=== PATIENT | male | born 1970 | race Hispanic/Latino ===

== ENCOUNTER 2021-04-19 20:35 | Inpatient (IN) | payer SELFPAY ==
[2021-04-19] MEDS ORDERED: Acetaminophen 325 MG TAB ONE (20:59)
[2021-04-19 21:10] LABS: #Lymphocytes 0.7 thou/uL (1.20-3.40); #Monocytes 0.6 thou/uL (0.11-0.59); #Neutrophils 3.6 thou/uL (1.40-6.50); %Basophils 0.6 % (0.0-1.0); %Eosinophils 0.3 % (0.0-10.0); %Lymphocytes 14.7 % (21.0-51.0); %Monocytes 12.7 % (0.0-10.0); %Neutrophils 71.8 % (42.0-75.0); Hemoglobin 12.3 g/dL (14.0-18.0); Mean Corpuscular HGB CONC 33.5 g/dL (32.0-36.0); Mean Corpuscular Hemoglobin 31.6 pg (27.0-31.0); Mean Corpuscular Volume 94.1 fL (78.0-98.0); Mean Platelet Volume 8.7 fL (7.4-10.4); Platelet Count 131 thou/uL (130-400); RBC Distribution Width 11.8 % (11.5-14.5)
[2021-04-19 21:28] LABS: ALT (SGPT) 113 U/L (8-55); AST (SGOT) 93 U/L (5-34); Albumin 3.8 g/dL (3.5-5.0); Alkaline Phosphatase 175 U/L (40-110); Anion Gap 27 mmol/L (10-20); BUN (Urea Nitrogen) 13 mg/dL (8.9-20.6); Bilirubin, Total 1.2 mg/dL (0.2-1.2); Calc. Creatinine Clearance 0 mL/min (70-130); Calcium 8.3 mg/dL (7.8-10.44); Chloride 100 mmol/L (98-107); Globulin 2.5 g/dL (2.4-3.5); Potassium 3.2 mmol/L (3.5-5.1); Protein, Total 6.3 g/dL (6.0-8.3); Sodium 133 mmol/L (136-145)
[2021-04-19 21:31] LABS: Carbon Dioxide 9 mmol/L (22-29); Glucose 761 mg/dL (70-105)
[2021-04-19] MEDS ORDERED: Potassium Chloride 20 MEQ TAB ONE (21:37)
[2021-04-19 21:39] LABS: SARS-CoV-2 NAA Rapid Test Not Detected (NotDetected)
[2021-04-19] MEDS ORDERED: Magnesium 2 GM/50 ML BAG (IN WATER) ONE (21:51)
[2021-04-19] MEDS ORDERED: NS 0.9% w/ 40 MEQ KCL 1,000 ML IV SCH (22:00)
[2021-04-19 22:01] LABS: Analyzer IN Cardio ER; Base Excess -14.1 mEq/L (-2.0 to +3.0); Calcium, Ionized (venous) 1.08 mmol/L (1.16-1.32); Chloride (VBG) 102 mmol/L (98-106); Hemoglobin (Hb) 12.8 g/dL (13.1-17.2); Potassium (VBG) 3.03 mmol/L (3.70-5.30); Sodium 134.9 mmol/L (133-146); pH (venous) 7.31 (7.32-7.43)
[2021-04-19] MEDS ORDERED: Insulin Regular 300 UNITS/3 ML VIAL ONE (22:18)
[2021-04-19] MEDS ORDERED: INSULIN REGULAR IN 0.9 % NACL 100 UNIT/100 ML BAG ONE (22:28)
[2021-04-19 22:32] LABS: Actual Bicarbonate (HCO3v) 10 mEq/L (22-28)
[2021-04-19 22:32] LABS: Troponin I 0.032 ng/mL (< 0.028)
[2021-04-19 23:04] LABS: Bilirubin Negative (Negative); Blood, Urine Negative (Negative); Clarity Clear (Clear); Glucose, Urine (Dipstick) Greater than 1000 mg/dL (Negative); Ketone, Urine 80 mg/dL (Negative); Leukocyte Negative Leu/uL (Negative); Nitrite Negative (Negative); Protein, Urine (Dipstick) Negative (Neg-Trace); Specific Gravity, Urine 1.032 (1.002-1.036); Urobilinogen Normal mg/dL (Less than 2)
[2021-04-19] MEDS ORDERED: HUMULIN R 100 UNITS in Sodium Chloride 0.9% 100 ML IVPB SCH (23:45)
[2021-04-19 23:47] VITALS: BMI 26.8
[2021-04-19] MEDS ORDERED: Acetaminophen 325 MG TAB PO PRN ×2 (23:50→23:57)
[2021-04-19] MEDS ORDERED: Dextrose 5 %-0.45 % NaCl 1,000 ML IV PRN (23:55)
[2021-04-19] MEDS ORDERED: Sodium Chloride 0.9% 1,000 ML IV PRN ×4 (23:55)
[2021-04-19] MEDS ORDERED: NS 0.9% w/ 20 MEQ KCL 1,000 ML IV PRN ×2 (23:55)
[2021-04-19] MEDS ORDERED: Electrolyte Replacement Protocol 1 EACH IVPB ONE (23:55)
[2021-04-19] MEDS ORDERED: hydrALAZINE 20 MG/ML VIAL SLOW IVP PRN (23:57)
[2021-04-19] MEDS ORDERED: Ondansetron PF 4 MG/2 ML Vial IVP PRN (23:57)
[2021-04-19] MEDS ORDERED: HYDROcodone/Acetaminophen 5/325 mg Tablet PO PRN (23:57)
[2021-04-19] MEDS ORDERED: Promethazine HCl 12.5 MG in Sodium Chloride 0.9% 50 ML IVPB PRN (23:57)
[2021-04-19] MEDS ORDERED: Labetalol HCl 100 MG/20 ML VIAL SLOW IVP PRN (23:57)
[2021-04-19] MEDS ORDERED: cloNIDine 0.1 MG TAB PO PRN (23:57)
[2021-04-20 00:54] LABS: Anion Gap 16 mmol/L (10-20); BUN (Urea Nitrogen) 10 mg/dL (8.9-20.6); Calc. Creatinine Clearance 90 mL/min (70-130); Carbon Dioxide 14 mmol/L (22-29); Chloride 111 mmol/L (98-107); Glucose 330 mg/dL (70-105); Potassium 3.3 mmol/L (3.5-5.1); Sodium 138 mmol/L (136-145)
[2021-04-20] MEDS ORDERED: Potassium Chloride 20 MEQ TAB PO SCH (02:00)
[2021-04-20] MEDS: D5 1/2 NS w/20 mEq KCL 1,000 ML IV PRN ×2 (02:18→05:37)
[2021-04-20 03:40] LABS: Anion Gap 14 mmol/L (10-20); BUN (Urea Nitrogen) 9 mg/dL (8.9-20.6); Calc. Creatinine Clearance 109 mL/min (70-130); Calcium 7.7 mg/dL (7.8-10.44); Carbon Dioxide 16 mmol/L (22-29); Chloride 113 mmol/L (98-107); Glucose 237 mg/dL (70-105); Potassium 3.3 mmol/L (3.5-5.1); Sodium 140 mmol/L (136-145)
[2021-04-20 03:45] LABS: ALT (SGPT) 89 U/L (8-55); AST (SGOT) 68 U/L (5-34); Albumin 3.1 g/dL (3.5-5.0); Alkaline Phosphatase 118 U/L (40-110); Bilirubin, Direct 0.5 mg/dL (0.1-0.3); Bilirubin, Total 0.8 mg/dL (0.2-1.2); Protein, Total 5.4 g/dL (6.0-8.3)
[2021-04-20 04:13] LABS: Anion Gap 14 mmol/L (10-20); BUN (Urea Nitrogen) 9 mg/dL (8.9-20.6); Calc. Creatinine Clearance 113 mL/min (70-130); Calcium 7.8 mg/dL (7.8-10.44); Carbon Dioxide 14 mmol/L (22-29); Chloride 114 mmol/L (98-107); Glucose 234 mg/dL (70-105); Magnesium 2.2 mg/dL (1.6-2.6); Potassium 3.4 mmol/L (3.5-5.1); Sodium 139 mmol/L (136-145)
[2021-04-20 04:37] LABS: #Lymphocytes 0.8 thou/uL (1.20-3.40); #Monocytes 0.5 thou/uL (0.11-0.59); #Neutrophils 2.5 thou/uL (1.40-6.50); %Basophils 0.3 % (0.0-1.0); %Lymphocytes 20.9 % (21.0-51.0); %Monocytes 12.5 % (0.0-10.0); %Neutrophils 65.3 % (42.0-75.0); Hemoglobin 11.1 g/dL (14.0-18.0); Mean Corpuscular HGB CONC 35.6 g/dL (32.0-36.0); Mean Corpuscular Hemoglobin 33.2 pg (27.0-31.0); Mean Corpuscular Volume 93.3 fL (78.0-98.0); Mean Platelet Volume 7.9 fL (7.4-10.4); Platelet Count 116 thou/uL (130-400); RBC Distribution Width 11.6 % (11.5-14.5); Red Blood Cell (RBC) Count 3.36 mill/uL (4.70-6.10); White Blood Cell (WBC) Count 3.9 thou/uL (4.8-10.8)
[2021-04-20 04:38] LABS: Platelet Morphology Comment Appears Decreased
[2021-04-20] MEDS: Thiamine 100 MG TAB PO SCH (08:52)
[2021-04-20] MEDS: Famotidine 20 MG TAB PO SCH ×2 (08:52→20:35)
[2021-04-20] MEDS: Folic Acid 1 MG TAB PO SCH (08:52)
[2021-04-20] MEDS: Heparin 5,000 UNITS/ML VIAL SC SCH ×2 (08:52→20:30)
[2021-04-20] MEDS ORDERED: Polyethylene Glycol 3350 17 GM Packet PO SCH (09:00)
[2021-04-20 09:15] LABS: Anion Gap 11 mmol/L (10-20); BUN (Urea Nitrogen) 7 mg/dL (8.9-20.6); Calc. Creatinine Clearance 129 mL/min (70-130); Calcium 7.8 mg/dL (7.8-10.44); Carbon Dioxide 20 mmol/L (22-29); Chloride 112 mmol/L (98-107); Glucose 178 mg/dL (70-105); Potassium 3.3 mmol/L (3.5-5.1); Sodium 140 mmol/L (136-145)
[2021-04-20] MEDS ORDERED: Dextrose 5% in Water 1,000 ML IV PRN (10:45)
[2021-04-20] MEDS ORDERED: Dextrose 50% Abboject 50 ML SYRINGE IVP PRN (10:45)
[2021-04-20] MEDS ORDERED: Lantus 1000 UNITS/10 ML VIAL SC SCH (10:45)
[2021-04-20] MEDS: Sodium Chloride 0.9% 1,000 ML IV SCH (12:33)
[2021-04-20] MEDS: HumaLOG 300 UNITS/3 ML VIAL SC PRN ×2 (17:14→20:33)
[2021-04-20] MEDS ORDERED: Electrolyte Replacement Protocol FS PRN (23:45)
[2021-04-21] MEDS: Sodium Chloride 0.9% 1,000 ML IV SCH (00:27)
[2021-04-21 04:19] LABS: Calcium 7.8 mg/dL (7.8-10.44); Chloride 105 mmol/L (98-107); Potassium 4.2 mmol/L (3.5-5.1); Sodium 134 mmol/L (136-145)
[2021-04-21 04:20] LABS: Glucose 195 mg/dL (70-105)
[2021-04-21 04:21] LABS: Carbon Dioxide 15 mmol/L (22-29)
[2021-04-21 04:23] LABS: Calc. Creatinine Clearance 141 mL/min (70-130)
[2021-04-21 04:24] LABS: BUN (Urea Nitrogen) 7 mg/dL (8.9-20.6)
[2021-04-21 04:25] LABS: Magnesium 1.6 mg/dL (1.6-2.6)
[2021-04-21 04:56] LABS: Anion Gap 18 mmol/L (10-20)
[2021-04-21] MEDS: HumaLOG 300 UNITS/3 ML VIAL SC PRN ×2 (05:26→11:08)
[2021-04-21] MEDS ORDERED: Magnesium 2 GM/50 ML 2 GM in Premix Bag 1 BAG IVPB SCH (06:30)
[2021-04-21 07:05] VITALS: TEMP 97.8
[2021-04-21 07:35] LABS: Band 4 % (5-11); Eosinophils 2 % (0-10); Hemoglobin 13.7 g/dL (14.0-18.0); Lymphocytes 36 % (21-51); MDiff Complete? YES; Mean Corpuscular HGB CONC 34.8 g/dL (32.0-36.0); Mean Corpuscular Hemoglobin 32.5 pg (27.0-31.0); Mean Corpuscular Volume 93.5 fL (78.0-98.0); Mean Platelet Volume 8.8 fL (7.4-10.4); Monocytes 4 % (0-10); Neutrophil 54 % (42-75); Platelet Count 132 thou/uL (130-400); RBC Distribution Width 12.1 % (11.5-14.5); Red Blood Cell (RBC) Count 4.22 mill/uL (4.70-6.10); White Blood Cell (WBC) Count 3.9 thou/uL (4.8-10.8)
[2021-04-21] MEDS: Famotidine 20 MG TAB PO SCH (08:57)
[2021-04-21] MEDS: Folic Acid 1 MG TAB PO SCH (08:57)
[2021-04-21] MEDS: Thiamine 100 MG TAB PO SCH (08:57)
[2021-04-21] MEDS: Heparin 5,000 UNITS/ML VIAL SC SCH (08:57)
[2021-04-21] MEDS ORDERED: Lantus 1000 UNITS/10 ML VIAL SC SCH (09:00)
[2021-04-21 11:39] LABS: Hemoglobin A1c 11.1 % (4.0-6.0)
== END 2021-04-21 12:34 | disposition home or self-care (01) | DRG 638 ==
LOC: ERS 20:35 → IMCU/EMU 22:21
PROVIDERS: ADMIT Internal Medicine; ATTEND Internal Medicine
DX: E11.10 Type 2 diabetes mellitus with ketoacidosis without coma (principal); N17.9 Acute kidney failure, unspecified; E87.1 Hypo-osmolality and hyponatremia; E87.6 Hypokalemia; R74.01 Elevation of levels of liver transaminase levels; E86.1 Hypovolemia; Z20.822 Contact with and (suspected) exposure to COVID-19
CPT/HCPCS: 0240U; 36415; 36416; 71045; 80048; 80053; 80076; 81003; 82010; 82805; 83036; 83605; 83735; 84484; 85025; 87040; 87086; 93005; 96365; 96367; 96368; 96376; J1644; J1815; J3475; J3480